=== PATIENT | male | born 1965 | race Caucasian/White ===

== ENCOUNTER 2017-12-26 08:40 | Inpatient (IN) | payer OTHER ==
[~2017-12-26] VITALS: Ht 175.3 cm; Wt 78.6 kg
--- NOTE | ~2017-12-26 | EKG ---
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: kirt : 1965 Requested By: Fran Dia Order Number: [id number] MD: John Zafar Measurements Intervals [place] Rate: 71 P: 51 IN: 161 QRS: 44 QRSD: 87 T: 0 QT: 387 QTc: 421 Interpretive Statements Sinus rhythm Low voltage, precordial leads Nonspecific T abnormalities, inferior leads ST elev, probable normal early repol pattern Peaked T waves No previous ECG available for comparison Electronically Signed On 12-26-2017 13:15:40 CDT by John Zafar [email or web address] <ELECTRONICALLY SIGNED> By: John Zafar MD 12/26/17 1315 0837 0837 John Zafar MD /JINA
--- NOTE | ~2017-12-26 | EKG ---
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
--- NOTE | ~2017-12-26 | CATHLAB ---
[facility] [address] [employer] [place] [address] INVASIVE PROCEDURE REPORT Name: BECKY VIVAR Room #: 210-P [facility] IN [facility].#: [id number] Admission: 12/26/17 Attend Phys: Darrell Angelo MD Discharge: Date of : 63 Date of Service: 12/26/17 1046 Report #: [id number] THIS REPORT FOR: //name// APPROVED REPORT Study performed: 12/26/2017 09:07:02 Patient Details Patient Status: In-Patient Room #: The patient is a 52 year-old male Event Personnel Fran Dia Equipment Associate, Alexia Valero, Rae Michele RTR, Dimitrios Tai Ariel RN remote encoding operations supervisor Performed Art Access - R femoral artery* 08330 Initial Mod Sed Same Phys/QHP Gr5y 390195 43304 Mod Sed Same Phys/QHP Ea 762378 Left Heart Cath w/or w/o Coronaries [id number] [facility] KRIS Revasc AMI Total/Sub Single LAD C9606 AMIREVSING Hemostasis w/ Mynx Indication STEMI Procedure Narrative The patient was brought emergently to the Cardiac Catheterization Laboratory and was prepped and draped in a sterile manner. The Right Groin^ was infiltrated with 1% Lidocaine subcutaneous anesthesia. A PINNACLE 6FR Sheath #[id number] sheath was inserted into the RFA^. Coronary angiography was performed using coronary diagnostic catheters. The right coronary system was accessed and visualized with a JR 4 catheter. The left coronary system was accessed and visualized with a JL 4 catheter. The left ventricle was accessed and visualized with a Pigtail catheter. Left ventricular/Aortic Valve gradient assessed via catheter pullback. Left ventriculogram was performed in OROSCO projection. Closure device was deployed with a 6 Fr Mynx. The patient tolerated the procedure well and there were no complications associated with the procedure. There was no hematoma. Intraoperative Conscious Sedation Sedation start time: 09:32 Case end Time: 10:15 Fentanyl 100 mcg Versed 2 mg Fluoro Time: 11.09 minutes [facility] [address] [place] [address] INVASIVE PROCEDURE REPORT Name: CBBECKY Choi Room #: 210-P [facility]#: [id number] Admission: 12/26/17 Attend Phys: Darrell Angelo MD Discharge: Date of : 63 Date of Service: 12/26/17 1046 Report #: [id number] Dose: DAP 91690.40 cGycm2 1466 mGy Contrast Type and Amount: Omnipaque 280 ml Coronary Angiography The patient's coronary anatomy is right dominant. Diagnostic Cath Left Main Normal LAD Critical 99% mid LAD stenosis at large first diagonal branch Diagonal 1 Normal Circumflex Large, non-dominant, comprised of single marginal branch OM1 normal OM1 Right Coronary Domnant. Mild 10-20% proximal plaquing R PDA Normal RPLV Large, normal Left Ventriculography The left ventricle is normal in size with abnormal contractility. The left ventricular ejection fraction is estimated to be 45%. Left ventricular wall motion abnormalities are present. There is no mitral insufficiency. Mild left ventricular dysfunciton with anteroapical hypokinesis. No mitral insufficieincy Hemodynamics The aortic pressure is 118/69 mmHg with a mean of 91 mmHg. The left ventricular pressure is 130/9 mmHg with a mean of mmHg. The left ventricular end diastolic pressure is 23 mmHg. PCI Technique Lesion Anticoagulation was achieved with Heparin, Integrilin. Patient was preloaded with Brillinta. Percutaneous coronary intervention was performed on the mid left anterior descending artery segment. The lesion stenosis prior to intervention was 99% with TYREL 2 flow. A LAUNCHER 6FR EBU 3.5 #[id number] Guide Catheter was used to engage the left main ostium. A Luge Wire .014 x 182CM #[id number] Interventional Guidewire was used to cross the lesion. BALLOON DILATION A Balloon catheter Euphora RX 2.5 x 12 #[id number] was inserted and inflated up to 10.00atm for 30seconds. Repeat angiography revealed the following post-dilatation results: moderate residual stenosis. STENT DEPLOYMENT [facility] [address] [place] [address] INVASIVE PROCEDURE REPORT Name: VIVARBECKY Room #: 210-P [facility] IN ..#: [id number] Admission: 12/26/17 Attend Phys: Darrell Angelo MD Discharge: Date of : 63 Date of Service: 12/26/17 1046 Report #: [id number] A drug-eluting stent RESOLUTE RX 3.0 X 18 #[id number] was inserted and inflated up to 16.00atm for 34seconds. Repeat angiography revealed the following post-stent deployment results: 0% residual stenosis. . POST STENT DEPLOYMENT BALLOON DILATION A Balloon catheter TREK NC RX 3.0 X 15 #[id number] was inserted and inflated up to 22.00atm for 30seconds. Repeat angiography revealed the following post-dilatation results: 0% residual stenosis with TYREL III flow. Additional Inflation: 22.00atm for 25seconds. Final angiography reveals 0 % stenosis with TYREL 3 flow. COMMENTS Very mild encroachment on origin of D1, covered by LAD stent Conclusion 1. Mild left ventricular dysfunction with anteroapical hypokinesis. EF 45% 2. Left main normal 3. LAD with critical 99% mid vessel stenosis, treated with 3.0 x 18mm Resolute stent 4. Circumflex large but non-dominant. Normal 5. Right coronary artery minimal plaquing. Dominant Recommendations Cardiac Rehabilitation Referral Aggressive Medical Therapy Medications Administered DANITZA Inhibitor (any) Aspirin (any) Beta Joao (any) Statin (any) Ticagrelor Cardiac Rehabilitation Referral <ELECTRONICALLY SIGNED> By: Fran Dia MD, [facility] 12/26/17 1046 1046 104 Fran Dia MD, FAC /INF
--- NOTE | ~2017-12-26 | HC ---
[facility] [place] [address] CONSULTATION Name: BECKY VIVAR Room #: 210-P [facility] IN ..#: [id number] Admission: 12/26/17 Attend Phys: Darrell Angelo MD Discharge: 12/28/17 Date of : 63 Report #: [id number] THIS REPORT FOR: //name// CC: Darrell Yusuf REASON FOR CONSULTATION: Chest pain. HISTORY OF PRESENT ILLNESS: The patient is a 52-year-old gentleman with limited past medical history. End of last week, he had several episodes of midsternal chest tightness, radiating between his shoulder blades and associated with shortness of breath. This pain did not last long. 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 He had no recurrent pain until this morning around 7:30 a.m. when he had recurrent tightness. This pain was associated with shortness of breath and radiation between the shoulder blades. Pain became much more intense. He presented to the Emergency Department where his pain was resolving and EKG demonstrated sinus rhythm with inferior ST segment abnormality and peaked anterior T waves. No ST segment elevation. A STEMI was called. He has had some improvement, but no relief in the pain. ALLERGIES: No known drug allergies. PAST MEDICAL HISTORY: His past history and medical records have been reviewed and include a history of bilateral inguinal herniorrhaphy, right knee arthroscopy and left thumb tendon surgery. SOCIAL HISTORY: He is a nonsmoker. FAMILY HISTORY: Unremarkable for premature coronary artery disease. REVIEW OF SYSTEMS: All systems negative except as that noted above. PHYSICAL EXAMINATION: GENERAL: Reveals a pleasant gentleman, ongoing distress. VITAL SIGNS: Blood pressure is 140/70, heart rate is 76 and regular, saturations 99% on room air. HEENT: There are neither xanthelasma, subcutaneous xanthomata, oral mucosal or digital cyanosis or kyphoscoliosis present. CHEST: Clear to auscultation and percussion. CARDIAC: Regular rate and rhythm with normal S1, S2. ABDOMEN: Soft and nontender. EXTREMITIES: Without cyanosis, clubbing or edema. Radial pulses are 2+. NEUROLOGIC: He is alert with a nonfocal exam. LABORATORY DATA: Blood work and radiographic studies remain pending. [address] [address] CONSULTATION Name: BECKY VIVAR Room #: 210-P [facility] IN M.R.#: [id number] Admission: 12/26/17 Attend Phys: Darrell Angelo MD Discharge: 12/28/17 Date of : 63 Report #: [id number] IMPRESSION: 1. Chest pain. 2. Unknown lipid status. RECOMMENDATIONS: Coronary angiography. The procedure was discussed in detail including its associated risks as well as the risks associated with a possible percutaneous intervention. After a thorough discussion of the procedure, its risks and alternatives and after answering his questions, he is agreeable to proceeding. <ELECTRONICALLY SIGNED> By: Fran Dia MD, [facility] 12/28/17 1637 0914 1038 Fran Dia MD, [facility] /nt
--- NOTE | ~2017-12-26 | EKG ---
[address] [place] [address] ELECTROCARDIOGRAM REPORT Name: BECKY VIVAR Room #: 210-P ADM IN M.R.#: [id number] Admission: 12/26/17 Attend Phys: Darrell Angelo MD Discharge: Date of : 63 Report #: [id number] THIS REPORT FOR: //name// [facility] Test Date: 2017-12-27 Test Time: 05:54:21 Pat Name: BECKY VIVAR Department: Room: 210 P Gender: M Camera Maker: LAZ : 1965 Requested By: Fran Dia Order Number: [id number] MD: Fran Dia Measurements Intervals [place] Rate: 74 P: 46 MS: 151 QRS: 80 QRSD: 88 T: 107 QT: 388 QTc: 431 Interpretive Statements Sinus rhythm Abnrm T, consider ischemia, anterolateral lds Compared to ECG 12/26/2017 10:58:45 Anterolateral T wave abnormality is now present Electronically Signed On 12-27-2017 9:02:30 CDT by Fran Dia [email or web address] <ELECTRONICALLY SIGNED> By: Fran Dia MD, [facility] 12/27/17901 0554 0554 Fran Dia MD, [facility] /EPI
--- NOTE | ~2017-12-26 | EKG ---
[address] [place] [address] ELECTROCARDIOGRAM REPORT Name: CBBECKY Choi Room #: 210-P [facility] IN M.R.#: [id number] Admission: 12/26/17 Attend Phys: Darrell Angelo MD Discharge: 12/28/17 Date of : 63 Report #: [id number] THIS REPORT FOR: //name// [facility] Test Date: 2017-12-28 Test Time: 06:30:52 Pat Name: BECKY VIVAR Department: Room: 210 P Gender: M Methods Study Analyst: LAZ : 1965 Requested By: Fran Dia Order Number: [id number] MD: Fran Dia Measurements Intervals [place] Rate: 73 P: 54 [place]: 149 QRS: 90 QRSD: 92 T: 118 QT: 422 QTc: 465 Interpretive Statements Sinus rhythm Borderline right axis deviation Low voltage, extremity leads Abnrm T, probable ischemia, anterolateral lds Compared to ECG 12/27/2017 05:54:21 No significant change was found Electronically Signed On 12-28-2017 15:52:13 CDT by Fran Dia [email or web address] <ELECTRONICALLY SIGNED> By: Fran Dia MD, [facility] 12/28/17 1552 9 Fran Dia MD, [facility] /EPI
[~2017-12-26 08:40] MED LIST: ALEVE220 M1
[2017-12-26 08:43] VITALS: BP 121/73
[2017-12-26 09:09] LABS: ABSOLUTE NEUTROPHILS 3.4 thou/uL (1.4-8.2); BASOPHILS 0.7 % (0.0-2.0); EOSINOPHILS 1.5 % (0.0-3.0); HEMATOCRIT 43.9 % (42.0-52.0); HEMOGLOBIN 15.2 gm/dL (14.0-18.0); MCH 32.9 pg (26.0-34.0); MCHC 34.7 g/dL (28.0-37.0); MCV 94.9 fL (80.0-100.0); MONOCYTES 11.1 % (1.0-8.0); PLATELET COUNT 302 thou/uL (150-400); POLYS 51.7 % (36.0-66.0); RBC 4.63 mil/uL (4.50-6.00); RDW 13.6 % (10.5-14.5); WBC 6.5 thou/uL (4.0-11.0)
[2017-12-26 09:15] LABS: ANION GAP 12 mmol/L (7-16); BUN 18 mg/dL (7-18); CALCIUM 9.6 mg/dL (8.5-10.1); CHLORIDE 102 mmol/L (98-107); CO2 22 mmol/L (21-32); CREATININE 1.2 mg/dL (0.7-1.3); GLUCOSE 155 mg/dL (74-106); POTASSIUM 3.5 mmol/L (3.5-5.1); SODIUM 136 mmol/L (136-145)
[2017-12-26 09:22] LABS: APTT 27.7 Seconds (24.5-32.8); INR 1.1; PROTIME 11.7 Seconds (9.3-11.4)
[2017-12-26 09:23] LABS: ALBUMIN 4.3 g/dL (3.4-5.0); SGOT 18 U/L (15-37); SGPT 32 U/L (30-65); TOTAL BILIRUBIN 0.6 mg/dL (<0.1-1.0); TOTAL PROTEIN 7.6 g/dL (6.4-8.2); TROPONIN-I < 0.04 ng/mL (<0.06)
[2017-12-26 09:36] VITALS: BP 141/70
[2017-12-26 10:30] VITALS: BP 119/83
[2017-12-26 16:00] VITALS: BP 125/88
[2017-12-26 20:11] VITALS: BP 114/68
[2017-12-27 00:14] VITALS: BP 96/53
[2017-12-27 05:08] VITALS: BP 105/61
[2017-12-27 05:27] LABS: HEMATOCRIT 42.5 % (42.0-52.0); HEMOGLOBIN 14.4 gm/dL (14.0-18.0); MCHC 33.9 g/dL (28.0-37.0); MCV 94.5 fL (80.0-100.0); RBC 4.5 mil/uL (4.50-6.00); RDW 13.7 % (10.5-14.5); WBC 10.4 thou/uL (4.0-11.0)
[2017-12-27 05:51] LABS: ANION GAP 9 mmol/L (7-16); BUN 13 mg/dL (7-18); CALCIUM 8.7 mg/dL (8.5-10.1); CHLORIDE 106 mmol/L (98-107); CHOLESTEROL 163 mg/dL (<200); CO2 26 mmol/L (21-32); CREATININE 0.9 mg/dL (0.7-1.3); GLUCOSE 104 mg/dL (74-106); HDL CHOLESTEROL 32 mg/dL (>40); LDL CHOLESTEROL 89 mg/dL (<100); POTASSIUM 3.9 mmol/L (3.5-5.1); SODIUM 141 mmol/L (136-145); TC:HDL 5.1 Ratio (Not establshd); TRIGLYCERIDE 213 mg/dL (<150); VLDL 43 mg/dL (<40)
[2017-12-27 06:03] LABS: SERUM ASSESSMENT Clear
[2017-12-27 06:04] LABS: TROPONIN-I 4.85 ng/mL (<0.06)
[2017-12-27 10:00] VITALS: BP 109/78
[2017-12-27 11:02] VITALS: BP 115/74
[2017-12-27 15:19] VITALS: BP 109/60
[2017-12-27 19:27] VITALS: BP 122/71
[2017-12-28 05:00] VITALS: BP 108/62
[2017-12-28 07:23] VITALS: BP 107/70
[2017-12-28] MEDS ORDERED: ATORVASTATIN CA40 MG PO (10:41)
[2017-12-28] MEDS ORDERED: METOPROLOL SUCC25 M1 PO (10:41)
[2017-12-28] MEDS ORDERED: LISINOPRIL10 MG PO (10:41)
[2017-12-28] MEDS ORDERED: BRILINTA90 MG PO (10:41)
[2017-12-28] MEDS ORDERED: ASPIR 8181 MG PO (10:41)
[2017-12-28 10:50] VITALS: BP 107/70
== END 2017-12-28 11:40 | disposition home or self-care (01) | DRG 247 ==
LOC: ER 08:40 → 2N 10:06 → EROBS 10:06 → 2N 10:07 → ENTRNSPT 12-28 11:22 → EDTRNSPTSTS 12-28 11:25 → 2N 12-28 11:40
PROVIDERS: Emergency Medicine; Internal Medicine
DX: I21.4 Non-ST elevation (NSTEMI) myocardial infarction (principal); I50.20 Unspecified systolic (congestive) heart failure; I25.10 Atherosclerotic heart disease of native coronary artery without angina pectoris; I10 Essential (primary) hypertension; E78.5 Hyperlipidemia, unspecified; I25.5 Ischemic cardiomyopathy; Z79.82 Long term (current) use of aspirin; Z98.890 Other specified postprocedural states; Z79.899 Other long term (current) drug therapy
CPT/HCPCS: 10081

== ENCOUNTER → 2018-04-26 | Outpatient (CLI) | payer OTHER ==
[~2018-04-26] MED LIST changes: +ASPIR 8181 MG PO; +ATORVASTATIN CA40 MG PO; +BRILINTA90 MG PO; +LISINOPRIL10 MG PO; +METOPROLOL SUCC25 M1 PO
== END ==
LOC: CAT 07:31
DX: K40.31 Unilateral inguinal hernia, with obstruction, without gangrene, recurrent (principal)

== ENCOUNTER → 2018-10-06 | Outpatient (CLI) | payer OTHER ==
--- NOTE | 2018-10-06 14:35 | EXE ---
[facility] [address] [place] [address] STRESS ECHOCARDIOGRAM Name: BECKY VIVAR Room #: REG ARGENIS Vargas#: [id number] ������������� Admission: 10/06/18 ������������� Attend Phys: Fran Dia, Discharge: ��� ������������� ��� Date of : 63 Date of Service: 10/06/18 1435 �� Report #: [id number] �������� ��������������������������������������������[id number] THIS REPORT FOR: //name// APPROVED REPORT Study performed: 10/06/2018 13:14:07 Exam: Stress Echocardiogram Indication: Chest pain Patient Location: Echo lab Stress Nurse: Astrid Morse RN Room #: 2 Status: routine Ht: 5 ft 9 in HR: 68 bpm BP: 120/70 mmHg Rhythm: NSR Medical History Medical History: CAD s/p stent Cardiac Risk Factors: HTN Previous Cardiac Procedures: PCI Exercise History: Physically active Procedure The patient underwent an Exercise Stress Test using the Oscar Protocol. Blood pressure, heart rate, and EKG were monitored. An Echocardiogram was performed by heat transfer technician in four stages in quad fashion. At peak stress, four selected images were obtained and placed side by side with resting images for comparison. Stress Test Details Stress Test: Exercise stress testing was performed using a Oscar protocol. HR Resting HR: 68 bpm Max Heart Rate (APMHR): 167 bpm Max HR Achieved: 157 bpm Target HR (85% APMHR): 141 bpm % of APMHR: 94 Recovery HR: 99 bpm HR response to stress: Normal HR response to stress BP Resting BP: 120/70 mmHg Max BP: 152/72 mmHg Recovery BP: 120/79 mmHg [facility] [address] [address] STRESS ECHOCARDIOGRAM Name: BECKY VIVAR Room #: REG Sam#: [id number] ������������� Admission: 10/06/18 ������������� Attend Phys: Fran Dia, Discharge: ��� ������������� ��� Date of : 63 Date of Service: 10/06/18 1435 �� Report #: [id number] �������� ��������������������������������������������[id number] BP response to stress: Normal blood pressure response to stress. ECG Resting ECG: Sinus Rhythm Stress ECG: Sinus Rhythm ST Change: Normal Maximum ST Deviation: 0 mm Arrhythmia: None Recovery ECG: Sinus Rhythm Recovery ST Change: Normal Recovery ST Deviation: 0 mm Recovery Arrhythmia: None Clinical Reason for Termination: Maximal effort Exercise duration: 14 min sec Highest Stage Achieved: Stage 5: 5.0 mph at 18% grade. Exercise capacity: 17.5 METs Overall Exercise Capacity for Age: Good Angina Score: None Stress ECG Conclusion Clinical: Non-ischemic ECG: Non-ischemic Desouza Treadmill Score is 14.0 which is Low risk. Pre-Stress Echo The resting Echocardiogram showed normal left ventricular contractility with an estimated Ejection Fraction of about >55%. Post-Stress Echo The stress Echocardiogram showed normal left ventricular contractility with an estimated Ejection Fraction of about >70%. Clinical Normal augmentation of myocardial wall segments using a 17 segment model. Conclusion Clinical Response: Non-ischemic Exercise Capacity: Superior Stress ECG Response: Non-ischemic Stress Echo Images: Non-ischemic The left ventricle is normal in size and wall thickness in both the rest and stress images. Normal stress echocardiogram with maximal exercise stress. [facility] [address] [place] [place] [address] STRESS ECHOCARDIOGRAM Name: CBBECKY Choi Room #: REG CL Sam#: [id number] ������������� Admission: 10/06/18 ������������� Attend Phys: Fran Dia, Discharge: ��� ������������� ��� Date of : 63 Date of Service: 10/06/18 [facility] �� Report #: [id number] �������� ��������������������������������������������[id number] Other Information Study Quality: Good <Conclusion> The left ventricle is normal in size and wall thickness in both the rest and stress images. Normal stress echocardiogram with maximal exercise stress. ��������������������������������������������� <ELECTRONICALLY SIGNED> ���������������������������������������� By: Fran Dia MD, FACC ��������������������������������������������� 10/06/181434 34 34 Fran Dia MD, FACC /INF
== END ==
LOC: CV 13:14
DX: R07.9 Chest pain, unspecified (principal); I10 Essential (primary) hypertension; I25.10 Atherosclerotic heart disease of native coronary artery without angina pectoris; Z95.1 Presence of aortocoronary bypass graft

== ENCOUNTER 2019-04-05 07:50 | Day surgery (SDC) | payer OTHER ==
[~2019-04-05] VITALS: Ht 175.3 cm; Wt 76.7 kg
[~2019-04-05 07:50] MED LIST changes: +BYSTOLIC 5 MG5 M1 PO; +COZAAR 25 MG TA25 M1 PO; +LIPITOR40 MG PO; +TYLENOL PM EX-1 EACH PO
[2019-04-05 08:27] VITALS: BP 107/69
[2019-04-05] MEDS ORDERED: NORCO 5-325 TA1 EAC1 PO (12:23)
[2019-04-05 12:36] VITALS: BP 107/69
--- NOTE | 2019-04-05 15:41 | O ---
[facility] [place] [address] OPERATIVE REPORT Name: BECKY VIVAR Room #: 150-4 [facility] M..#: [id number] Admission: 04/05/19 Attend Phys: Lang Interiano MD Discharge: Date of : 63 Report #: [id number] THIS REPORT FOR: //name// CC: CARL Interiano DATE OF SERVICE: 04/05/[address] Lang Interiano, Dr. Carl Winn, Dr. Alex Vallecillo, Dr. Miles Cobb, Dr. Fran Dia. POSTOPERATIVE DIAGNOSIS: Recurrent left inguinal hernia. POSTOPERATIVE DIAGNOSIS: Recurrent left inguinal hernia. PROCEDURE: Repair of a recurrent left inguinal hernia with Prolene hernia system mesh. SURGEON: Lang Interiano MD ANESTHESIA: Local IV sedation. DESCRIPTION OF PROCEDURE: The patient was brought to the operating room and placed on operative table in the supine position. Sequential compression devices were in place for DVT prophylaxis. There was no indication for preoperative antibiotics. The patient underwent IV sedation. Left inguinal area was then prepped and draped in a sterile fashion. Skin and subcutaneous tissue were then infiltrated with 0.5% Marcaine and 1% Xylocaine in a 1:1 mixture. Left inguinal skin incision was then performed using #10 scalpel blade. Hemostasis obtained using electrocautery as well as clamps and 2-0 chromic ties. Dissection was carried down through the subcutaneous tissue, the external oblique fascia, which was then identified and incised with a knife and opened with the Metzenbaum scissors. The ilioinguinal nerve was identified, dissected free, injected with the local and preserved. The cord was then elevated and held into place with a Víctor drain. Cremasteric muscle fibers were then split in the direction of their fibers using clamp and electrocautery. A large recurrent indirect inguinal hernia sac was identified and dissected free and reduced back through the internal ring. While dissecting free the preperitoneal space, I was able to identify and palpate the previous hernia mesh, which appeared to have become disconnected medially and had migrated laterally allowing this indirect inguinal hernia sac to bulge through the internal ring. An extended Prolene hernia system mesh was then inserted through the internal ring and the underlay patch was then deployed in the preperitoneal space. The connector was left in the internal ring and the overlay patch was then deployed into the inguinal canal. The mesh was secured at the [address] [address] OPERATIVE REPORT Name: BECKY VIVAR Room #: 150-4 [facility] M.R.#: [id number] Admission: 04/05/19 Attend Phys: Lang Interiano MD Discharge: Date of : 63 Report #: [id number] tubercle superiorly and at the connector using simple interrupted 2-0 Vicryl sutures. The mesh was split and wrapped around the cord, secured to the inguinal ligament with simple interrupted 2-0 Vicryl suture. The cord and ilioinguinal nerve were then returned to the canal intact. The external oblique fascia was then closed using running 2-0 Vicryl suture. Tex's fascia was then reapproximated using simple interrupted 2-0 chromic sutures and the skin then closed with a running 4-0 subcuticular Vicryl stitch. The wound was then dressed with Mastisol, 1/2-inch Steri-Strips cut into half, Telfa, 4 x 4 gauze, sponge and tape. The patient was then awakened from the IV sedation, taken to the recovery room in good condition. Estimated blood loss was approximately 5 mL and the patient tolerated procedure well. All sponge, lap and instrument counts correct x 2. <ELECTRONICALLY SIGNED> By: Lang Interiano MD 04/05/19 1541 1217 1307 Lang Interiano MD /nt
== END 2019-04-05 13:45 | disposition home or self-care (01) ==
LOC: OR 07:50 → TBA 07:56 → OR 11:13
DX: K40.91 Unilateral inguinal hernia, without obstruction or gangrene, recurrent (principal); I10 Essential (primary) hypertension; E78.5 Hyperlipidemia, unspecified; I25.2 Old myocardial infarction; K21.9 Gastro-esophageal reflux disease without esophagitis; Z98.890 Other specified postprocedural states; Z79.899 Other long term (current) drug therapy; Z79.82 Long term (current) use of aspirin
CPT/HCPCS: 50010; 50101; 50386; 50417; 54111; 56524; 56526; 56528; 62110; 62900; 70005

== ENCOUNTER → 2019-09-01 | Outpatient (CLI) | payer OTHER ==
[~2019-09-01] MED LIST changes: +NORCO 5-325 TA1 EAC1 PO
--- NOTE | 2019-09-04 09:58 | P ---
[facility] [place] [address] PROCEDURE REPORT Name: BECKY VIVAR [id number] Admission: 09/01/19 Attend Phys: Robin Holcomb Discharge: Date of : 63 Report #: [id number] THIS REPORT FOR: cc: Carl Winn MD, Neal A. MD McElhinney, Christian C. MD ~ CC: Robin Winn MD DATE OF SERVICE: 09/01/2019 PROCEDURE PERFORMED: Upper endoscopy with biopsies. HISTORY OF PRESENT ILLNESS: The patient is a 53-year-old male with a history of gastroesophageal reflux disease, currently taking Pepcid on a p.r.n. basis. No previous history of upper endoscopy. Denies any dysphagia, nausea, or vomiting. States his heartburn symptoms became worse over the last several months. DESCRIPTION OF PROCEDURE: The risks and benefits of the procedure were explained to the patient, those risks including but not limited to bleeding, perforation and the risk of sedation. He understood these risks and gave informed consent. Sedation was given using propofol per Anesthesia. Next, using a standard Olympus upper endoscope, the scope was placed in the patient's mouth and advanced under direct vision through the esophagus, stomach and into the second portion of the duodenum. The larynx was normal in appearance. The upper and mid esophagus were normal. Grade B erosive esophagitis was noted in the distal esophagus. Overall, the gastric mucosa was normal in the fundus. A mild gastritis was noted in the body. Several gastric ulcers were noted in the antrum. These ranged in size from 4-6 mm nonbleeding. Biopsies were obtained to rule out H. pylori. The duodenal bulb, first and second portion were all normal. The scope was then withdrawn and the procedure terminated. The patient tolerated the procedure well. IMPRESSION: 1. Grade B erosive esophagitis. 2. Gastritis with gastric ulcers. 3. Otherwise, normal upper endoscopy. RECOMMENDATIONS: 1. Await biopsy results. 2. Recommend daily PPI therapy. [address] [address] PROCEDURE REPORT Name: BECKY VIVAR Room #: REG BERNADETTE Vargas#: [id number] Admission: 09/01/19 Attend Phys: Robin Holcomb Discharge: Date of : 63 Report #: [id number] Thank you for allowing me to participate in his care. <ELECTRONICALLY SIGNED> By: Robin Monique MD 09/04/19 0958 1009 1016 Robin Monique MD /nt
--- NOTE | 2019-09-04 09:58 | P ---
[facility] [place] [address] PROCEDURE REPORT Name: BECKY VIVAR Room #: REG [facility]#: [id number] Admission: 09/01/19 Attend Phys: Robin Holcomb Discharge: Date of : 63 Report #: [id number] THIS REPORT FOR: cc: Carl Winn MD, Neal A. MD McElhinney, Christian C. MD ~ CC: Robin Winn MD DATE OF SERVICE: 09/01/2019 PROCEDURE PERFORMED: Colonoscopy. HISTORY OF PRESENT ILLNESS: The patient is a 53-year-old male who presents today for routine screening colonoscopy. Denies any symptoms. No family history of colon cancer. DESCRIPTION OF PROCEDURE: The risks and benefits of the procedure were explained to the patient, those risks including, but not limited to bleeding, perforation, the risk of sedation. He understood these risks and gave me informed consent. Sedation was given using propofol per anesthesia. Next, a digital rectal exam was initially performed, which was normal. Next, using a standard Olympus colonoscope, the scope was placed in the patient's anus and advanced under direct vision to the cecum. The overall prep was excellent. The cecum and ileocecal valve were normal in appearance. Ascending, transverse, descending and sigmoid colon were all normal. The rectal mucosa was normal. On retroflexion, no abnormalities were noted. The scope was then withdrawn and the procedure terminated. The patient tolerated the procedure well. IMPRESSION: Normal colonoscopy. RECOMMENDATIONS: Repeat colonoscopy in 10 years. Thank you for allowing me to participate in his care. <ELECTRONICALLY SIGNED> By: Robin Monique MD 09/04/19 [id number] Robin Monique MD /nt
--- NOTE | 2019-09-04 17:07 | PATH ---
[facility] [address] [place] [address] PATHOLOGY RPT PROCEDURE Name: BECKY JIANG Room #: REG [facility] Chavez.#: [id number] Admission: 09/01/19 Date of : 63 Discharge: Report #: [id number] Path Case #: [id number] [facility] Accession Number: [id number] . 01 Material submitted: . stomach - BX OF GASTRIC ULCER . 01 Clinical history: . Screening, GERD. . 02 Diagnosis: Gastric mucosa, gastric ulcer, endoscopic biopsy: - Helicobacter pylori induced mild active gastritis with focal intestinal metaplasia. - Negative for fragments of active ulcer. - Negative for atrophy or dysplasia. - Mild to rare Helicobacter pylori organisms present on the properly controlled immunohistochemical stain. (IUV:pit 09/04/2019) QTP 09/04/2019 1344 Local . 02 Electronically signed: . Jes Goyal MD, Pathologist NPI- [id number] . 01 Gross description: . Received in formalin labeled "Becky Jiang, BX of gastric ulcer" is a 1.6 x 0.3 x 0.1 cm aggregate of mcdowell-brown soft tissue fragments. The specimen is submitted entirely in A1. [place] [place] [facility] 09/03/2019 1247 Local . 02 Pathologist provided ICD-10: K29.70, B96.81 . 02 CPT . 617513, K92329 Specimen Comment: A courtesy copy of this report has been sent to [phone] Specimen Comment: Report sent to DR HUBBARD Performed at: [address], [place] [id number] MD Jay Spencer MD Phone: [phone] Performed at: [address] [id number] MD Jes Goyal MD Phone: [phone]
== END | disposition home or self-care (01) ==
LOC: GI 07:50
DX: Z12.11 Encounter for screening for malignant neoplasm of colon (principal); K29.60 Other gastritis without bleeding; B96.81 Helicobacter pylori [H. pylori] as the cause of diseases classified elsewhere; K22.10 Ulcer of esophagus without bleeding; K21.9 Gastro-esophageal reflux disease without esophagitis; Z87.19 Personal history of other diseases of the digestive system; Z98.890 Other specified postprocedural states; Z79.82 Long term (current) use of aspirin; Z79.899 Other long term (current) drug therapy
CPT/HCPCS: 62110; 62900

== ENCOUNTER → 2020-01-04 | Outpatient (CLI) | payer OTHER | LOC: LAB 10:08 | PROVIDERS: ATTEND Internal Medicine Cardiovascular Disease | DX: Z01.818 Encounter for other preprocedural examination (principal); Z11.59 Encounter for screening for other viral diseases ==

== ENCOUNTER → 2020-09-17 | Outpatient (CLI) | payer OTHER | LOC: SJCVCIMAG 08:11 | PROVIDERS: ATTEND Internal Medicine | DX: I25.10 Atherosclerotic heart disease of native coronary artery without angina pectoris (principal); R00.0 Tachycardia, unspecified; I49.1 Atrial premature depolarization; I25.2 Old myocardial infarction; I10 Essential (primary) hypertension; E78.5 Hyperlipidemia, unspecified; Z95.5 Presence of coronary angioplasty implant and graft ==